=== PATIENT | male | born 1940 | race Caucasian/White ===

== ENCOUNTER → 2024-05-21 | Outpatient (CLI) | payer MEDICARE, OTHER, SELFPAY ==
[2024-05-21 07:58] LABS: Misc Send Out* See Sep Rpt
== END | disposition home or self-care (01) ==
LOC: COPL 07:22
PROVIDERS: PCP Internal Medicine Cardiovascular Disease
DX: Z01.89 Encounter for other specified special examinations (principal)
CPT/HCPCS: 81401